=== PATIENT | female | born 1990 | race Caucasian/White ===

== ENCOUNTER 2017-04-04 07:27 | Emergency (ER) | payer OTHER ==
[~2017-04-04] VITALS: Ht 160 cm; Wt 86.2 kg
[2017-04-04 07:53] LABS: GLUCOSE,URINE NEGATIVE (NEG); PROTEIN,URINE >=300 mg/dL (NEG-TRACE)
--- NOTE | 2017-04-04 07:53 | PHYS DOC ---
Adult General Chief Complaint Chief Complaint: ABDOMINAL PAIN HPI HPI Patient is a 26 year old female with a history of tubal ligation a month ago presents the ED complaining of vaginal bleeding and lower abdominal pain 2 days. Patient states she hasn't been able to sleep because the abdominal pain woke her up at 4 am. Associated symptoms include nausea. Denies vomiting, dizziness, weakness, chest pain, shortness of breath, diarrhea or dysuria. Review of Systems Review of Systems Constitutional: Denies fever or chills [] Eyes: Denies change in visual acuity, redness, or eye pain [] HENT: Denies nasal congestion or sore throat [] Respiratory: Denies cough or shortness of breath [] Cardiovascular: No additional information not addressed in HPI [] GI: Complains of abdominal pain and nausea. Denies vomiting, bloody stools or diarrhea [] : Denies dysuria or hematuria [] Musculoskeletal: Denies back pain or joint pain [] Integument: Denies rash or skin lesions [] Neurologic: Denies headache, focal weakness or sensory changes [] Endocrine: Denies polyuria or polydipsia [] Current Medications Current Medications Current Medications Medications (Trade) Dose Ordered Sig/Poornima Start Time Stop Time Status Last Admin Dose Admin Info (Do NOT chart on this entry -- for MONITORING) 1 each PRN DAILY PRN 04/04/17 09:30 04/04/17 11:03 DC Iohexol (Omnipaque 300 Mg/ml) 75 ml 1X ONCE 04/04/17 09:30 04/04/17 09:31 DC 04/04/17 09:52 75 ML Morphine Sulfate 4 mg 1X ONCE 04/04/17 08:00 04/04/17 08:06 DC 04/04/17 08:25 4 MG Ondansetron HCl (Zofran) 4 mg 1X ONCE 04/04/17 08:00 04/04/17 08:06 DC 04/04/17 08:24 4 MG Allergies Allergies Allergies Coded Allergies Type Severity Reaction Last Updated Verified No Known Drug Allergies 04/04/17 No Physical Exam Physical Exam Constitutional: Well developed, well nourished, no acute distress, non-toxic appearance. [] HENT: Normocephalic, atraumatic, bilateral external ears normal, oropharynx moist, no oral exudates, nose normal. [] Eyes: PERRLA, EOMI, conjunctiva normal, no discharge. [] Neck: Normal range of motion, no tenderness, supple, no stridor. [] Cardiovascular:Heart rate regular rhythm, no murmur [] Lungs & Thorax: Bilateral breath sounds clear to auscultation [] Abdomen: Bowel sounds normal, soft, MILD SUPRAPUBIC TENDERNESS, no masses, no pulsatile masses. [] Skin: Warm, dry, no erythema, no rash. [] Back: No tenderness, no CVA tenderness. [] Extremities: No tenderness, no cyanosis, no clubbing, ROM intact, no edema. [] Neurologic: Alert and oriented X 3, normal motor function, normal sensory function, no focal deficits noted. [] Psychologic: Affect normal, judgement normal, mood normal. [] Current Patient Data Vital Signs Vital Signs Date Time Temp Pulse Resp B/P (MAP) Pulse Ox O2 Delivery O2 Flow Rate FiO2 04/04/17 10:42 64 111/67 (82) 98 Room Air 04/04/17 08:25 16 04/04/17 07:35 98.0 98.0 Lab Values Laboratory Tests Test 04/04/17 07:37 04/04/17 07:46 04/04/17 08:20 Urine Collection Type Unknown Urine Color Red Urine Clarity Turbid Urine pH 7.0 Urine Specific [place] 1.025 Urine Protein >=300 mg/dL (NEG-TRACE) Urine Glucose (UA) Negative mg/dL (NEG) Urine Ketones (Stick) mg/dL (NEG) Urine Blood Large (NEG) Urine Nitrite (NEG) Urine Bilirubin (NEG) Urine Urobilinogen Dipstick 1.0 mg/dL (0.2 mg/dL) Urine Leukocyte Esterase (NEG) Urine RBC >40 /HPF (0-2) Urine WBC Occ /HPF (0-4) Urine Squamous Epithelial Cells Many /LPF Urine Bacteria 0 /HPF (0-FEW) Urine Mucus /LPF POC Urine HCG, Qualitative Hcg negative (Negative) White Blood Count 12.6 x10^3/uL (4.0-11.0) H Red Blood Count 4.64 x10^6/uL (3.50-5.40) Hemoglobin 12.7 g/dL (12.0-15.5) Hematocrit 38.4 % (36.0-47.0) Mean Corpuscular Volume 83 fL (79-100) Mean Corpuscular Hemoglobin 27 pg (25-35) Mean Corpuscular Hemoglobin Concent 33 g/dL (31-37) Red Cell Distribution Width 13.2 % (11.5-14.5) Platelet Count 238 x10^3/uL (140-400) Neutrophils (%) (Auto) 78 % (31-73) H Lymphocytes (%) (Auto) 14 % (24-48) L Monocytes (%) (Auto) 6 % (0-9) Eosinophils (%) (Auto) 1 % (0-3) Basophils (%) (Auto) 1 % (0-3) Neutrophils # (Auto) 9.7 x10^3uL (1.8-7.7) H Lymphocytes # (Auto) 1.8 x10^3/uL (1.0-4.8) Monocytes # (Auto) 0.8 x10^3/uL (0.0-1.1) Eosinophils # (Auto) 0.2 x10^3/uL (0.0-0.7) Basophils # (Auto) 0.1 x10^3/uL (0.0-0.2) Sodium Level 139 mmol/L (136-145) Potassium Level 3.4 mmol/L (3.5-5.1) L Chloride Level 103 mmol/L (98-107) Carbon Dioxide Level 25 mmol/L (21-32) Anion Gap 11 (6-14) Blood Urea Nitrogen 12 mg/dL (7-20) Creatinine 0.7 mg/dL (0.6-1.0) Estimated GFR (Cockcroft-Gault) 102.8 BUN/Creatinine Ratio 17 (6-20) Glucose Level 106 mg/dL (70-99) H Calcium Level 8.7 mg/dL (8.5-10.1) Total Bilirubin 0.6 mg/dL (0.2-1.0) Aspartate Amino Transferase (AST) 17 U/L (15-37) Alanine Aminotransferase (ALT) 20 U/L (14-59) Alkaline Phosphatase 69 U/L (46-116) Total Protein 7.5 g/dL (6.4-8.2) Albumin 3.7 g/dL (3.4-5.0) Albumin/Globulin Ratio 1.0 (1.0-1.7) Laboratory Tests 04/04/17 08:20 Laboratory Tests 04/04/17 08:20 EKG EKG [] Radiology/Procedures Radiology/Procedures PROCEDURE: CT ABD PELV W/ IV CONTRST ONLY CT of the abdomen and pelvis with contrast, 04/04/2017: History: Abdominal pain Multidetector CT imaging was performed following an IV bolus injection of iodinated contrast material. No oral contrast material was administered for this study. No hepatic abnormality is detected. The gallbladder is unremarkable. No pancreatic abnormality is seen. The spleen is of normal size. No renal abnormality is detected. No abdominal or pelvic adenopathy is identified. The uterus and ovaries are of normal size. The bowel loops are not dilated. A portion of the appendix is visualized and it shows no abnormality. No free fluid or free air is evident in the abdomen or pelvis. IMPRESSION: No acute abdominal or pelvic abnormality is detected. []PROCEDURE: PELVIS W/TV Ultrasound pelvis Indication: Pelvic pain, vaginal bleeding. Last menstrual period 04/04/2017. A2 Technique: Transvaginal and transabdominal ultrasound of the pelvis. Comparison: None Findings: The uterus measures 9.5 x 4.4 x 5.6 cm and is within normal limits. The endometrial stripe measures 8.1 mm and is within normal limits. There is no vascularity in the endometrium. Nabothian cysts noted. The left ovary measures 2.1 x 1.7 x 2.3 cm without evidence of solid or cystic lesion. Small amount of free fluid is seen in the cul-de-sac. The right ovary measures 2.3 x 1.4 x 1.6 cm without solid or cystic lesion. Evidence of blood flow on color Doppler in right ovary. Increased flow is seen within the parametrium suggesting pelvic varices. Impression: 1. Endometrial stripe within normal limits. No evidence of fibroids. 2. Bilateral ovaries are symmetric and demonstrate no solid or cystic lesions. Course & Med Decision Making Course & Med Decision Making Pertinent Labs and Imaging studies reviewed. (See chart for details) []Discussed labs and imaging with patient. Patient improved. Vital stable, no acute distress. On examination, abdomen is soft nontender nondistended. No peritoneal signs. Tolerating PO. Discussed follow-up with [employer] in 1-2 days. Provided contact information/education. Discussed reasons to return to the ED. Patient understands and agrees with plan. Dragarlene Disclaimer Dragon Disclaimer This electronic medical record was generated, in whole or in part, using a voice recognition dictation system. Departure Departure Impression: Primary Impression: Dysmenorrhea Disposition: 01 HOME, SELF-CARE Condition: IMPROVED Referrals: JAYJAY EMERSON MD Patient Instructions: Dysmenorrhea Scripts Nitrofurantoin Monohyd/M-Cryst (MACROBID 100 MG CAPSULE) 100 Mg Capsule 1 CAP PO BID, #14 CAP Prov: LEIA MANNING 04/04/17 Naproxen (NAPROSYN) 500 Mg Tablet 1 TAB PO BID, #14 TAB 1 Refill Prov: LEIA MANNING 04/04/17 LEIA MANNING Apr 04, 2017 07:53
[2017-04-04 08:02] LABS: RBC,URINE >40 /HPF (0-2); SQUAMOUS EPITHELIAL CELL,UR MANY /LPF
[2017-04-04 08:03] LABS: BACTERIA,URINE 0 /HPF (0-FEW); WBC,URINE OCC /HPF (0-4)
[2017-04-04] MEDS: ONDANSETRON PF 4 MG/2 ML VIAL. IV ONE (08:24)
[2017-04-04] MEDS: MORPHINE SULFATE 4 MG/ML DISP.SYRIN. IV ONE (08:25)
[2017-04-04 08:28] LABS: BASO # 0.1 x10^3/uL (0.0-0.2); BASO % 1 % (0-3); EOS % 1 % (0-3); HEMATOCRIT 38.4 % (36.0-47.0); HEMOGLOBIN 12.7 g/dL (12.0-15.5); LYMPH # 1.8 x10^3/uL (1.0-4.8); LYMPH % 14 % (24-48); MEAN CORPUSCULAR HEMOGLOBIN 27 pg (25-35); MEAN CORPUSCULAR HGB CONC 33 g/dL (31-37); MEAN CORPUSCULAR VOLUME 83 fL (79-100); MONO % 6 % (0-9); NEUT % 78 % (31-73); PLATELET COUNT 238 x10^3/uL (140-400); RED BLOOD COUNT 4.64 x10^6/uL (3.50-5.40); RED CELL DISTRIBUTION WIDTH 13.2 % (11.5-14.5); WHITE BLOOD COUNT 12.6 x10^3/uL (4.0-11.0)
[2017-04-04 08:33] LABS: CALCIUM 8.7 mg/dL (8.5-10.1); CREATININE 0.7 mg/dL (0.6-1.0); GFR 102.8; POTASSIUM 3.4 mmol/L (3.5-5.1)
[2017-04-04 08:39] LABS: ALBUMIN 3.7 g/dL (3.4-5.0); TOTAL BILIRUBIN 0.6 mg/dL (0.2-1.0); TOTAL PROTEIN 7.5 g/dL (6.4-8.2)
[2017-04-04] MEDS ORDERED: CONTRAST GIVEN MC PRN (09:30)
[2017-04-04] MEDS: IOHEXOL 300 MG/ML 75 ML VIAL IV ONE (09:52)
--- NOTE | 2017-04-04 10:13 | RAD ---
Ultrasound pelvis Indication: Pelvic pain, vaginal bleeding. Last menstrual period 04/04/2017. A2 Technique: Transvaginal and transabdominal ultrasound of the pelvis. Comparison: None Findings: The uterus measures 9.5 x 4.4 x 5.6 cm and is within normal limits. The endometrial stripe measures 8.1 mm and is within normal limits. There is no vascularity in the endometrium. Nabothian cysts noted. The left ovary measures 2.1 x 1.7 x 2.3 cm without evidence of solid or cystic lesion. Small amount of free fluid is seen in the cul-de-sac. The right ovary measures 2.3 x 1.4 x 1.6 cm without solid or cystic lesion. Evidence of blood flow on color Doppler in right ovary. Increased flow is seen within the parametrium suggesting pelvic varices. Impression: 1. Endometrial stripe within normal limits. No evidence of fibroids. 2. Bilateral ovaries are symmetric and demonstrate no solid or cystic lesions.
--- NOTE | 2017-04-04 10:35 | RAD ---
CT of the abdomen and pelvis with contrast, 04/04/2017: History: Abdominal pain Multidetector CT imaging was performed following an IV bolus injection of iodinated contrast material. No oral contrast material was administered for this study. No hepatic abnormality is detected. The gallbladder is unremarkable. No pancreatic abnormality is seen. The spleen is of normal size. No renal abnormality is detected. No abdominal or pelvic adenopathy is identified. The uterus and ovaries are of normal size. The bowel loops are not dilated. A portion of the appendix is visualized and it shows no abnormality. No free fluid or free air is evident in the abdomen or pelvis. IMPRESSION: No acute abdominal or pelvic abnormality is detected. PQRS Compliance Statement: One or more of the following individualized dose reduction techniques were utilized for this examination: 1. Automated exposure control 2. Adjustment of the mA and/or kV according to patient size 3. Use of iterative reconstruction technique
[2017-04-04 10:42] VITALS: BP 111/67
[2017-04-04] MEDS ORDERED: NITR100C62 PO (10:48)
[2017-04-04] MEDS ORDERED: NAPR500T PO (10:48)
== END 2017-04-04 11:00 | disposition home or self-care (01) ==
LOC: ER 07:27
DX: N94.6 Dysmenorrhea, unspecified (principal); R10.30 Lower abdominal pain, unspecified; Z98.51 Tubal ligation status
CPT/HCPCS: 36415; 74177; 76830; 76856; 80053; 81001; 81025; 85025; 96374; 96375; 99285; J2270; J2405; Q9967